=== PATIENT | female | born 1960 | race Caucasian/White ===

== ENCOUNTER 2020-08-19 13:59 | Emergency (ER) | payer MEDICARE ==
[2020-08-19 15:05] LABS: HEMOGLOBIN 10.6 gm/dl (12.3-15.3); RED BLOOD COUNT 3.91 M/UL (4.00-5.10)
[2020-08-19 15:42] LABS: BUN/CREATININE RATIO 7 (0-10)
[2020-08-19] MEDS ORDERED: K-DUR TAB 20 M20 MEQ PO (18:11)
== END 2020-08-19 18:34 | disposition home or self-care (01) ==
LOC: ER1 13:59
PROVIDERS: Emergency Medicine
DX: F19.239 Other psychoactive substance dependence with withdrawal, unspecified (principal); E87.6 Hypokalemia; Z20.822 Contact with and (suspected) exposure to COVID-19; I10 Essential (primary) hypertension; Z90.710 Acquired absence of both cervix and uterus; Z88.1 Allergy status to other antibiotic agents
CPT/HCPCS: 0240U; 36415; 70450; 71045; 80053; 80307; 81001; 82550; 82553; 83690; 83735; 83874; 84484; 85025; 93005; 99285